=== PATIENT | male | born 1940 | race Two or more races ===

== ENCOUNTER 2019-11-14 06:36 | Day surgery (SDC) | payer MEDICARE, BC ==
[~2019-11-14] VITALS: Ht 160 cm; Wt 70.9 kg
[2019-11-14] VITALS (12 sets, daily range): BP systolic 96–141; BP diastolic 57–77
[2019-11-14] MEDS ORDERED: normal saline 1000ml 1,000 ML IV PRN (07:05)
[2019-11-14] MEDS ORDERED: [UNRECOGNIZED DRUG - CODE] (07:29)
[2019-11-14] MEDS ORDERED: SOTA120T PO (07:29)
[2019-11-14] MEDS ORDERED: LIDO20SO24 PO (07:29)
[2019-11-14] MEDS ORDERED: ASPI-1130 PO (07:29)
[2019-11-14] MEDS ORDERED: FAMO40TA7 PO (07:29)
[2019-11-14] MEDS ORDERED: CLOP75TA35 PO (07:29)
[2019-11-14] MEDS ORDERED: HYDR25TA4 PO (07:29)
[2019-11-14] MEDS ORDERED: LORA-660 PO (07:29)
[2019-11-14] MEDS ORDERED: LOSA50TA64 PO (07:29)
[2019-11-14] MEDS ORDERED: normal saline 1000ml 1,000 ML IV ONE (08:08)
[2019-11-14] MEDS ORDERED: LIDOcaine 1%/PF 5ML 10 MG/ML VIAL ONE (08:18)
[2019-11-14] MEDS ORDERED: midazolam 2 mg/2 ml injection ONE ×2 (08:18→09:02)
[2019-11-14] MEDS ORDERED: heparin 1,000 UNITS/NS 500ml 500 ML ONE (08:18)
[2019-11-14] MEDS ORDERED: fentaNYL/PF 50MCG/1 ML 2ML syringe ONE ×2 (08:18→09:02)
[2019-11-14] MEDS ORDERED: iohexol 300mg/ml 100ml inj. ONE (08:18)
[2019-11-14 08:26] LABS: BASOPHILS # (AUTO) 0.1 X10'3 (0-0.2); BASOPHILS % (AUTO) 1.4 % (0-1); EOSINOPHILS # (AUTO) 0.3 X10'3 (0-0.9); EOSINOPHILS % (AUTO) 5.2 % (0-6); HEMATOCRIT 45.7 % (42.0-52.0); HEMOGLOBIN 15.4 g/dl (14.0-17.9); LYMPHOCYTES # (AUTO) 1.5 X10'3 (1.1-4.8); LYMPHOCYTES % (AUTO) 22.9 % (21-51); MEAN CORPUSCULAR HEMOGLOBIN 30.5 PG (27.0-31.0); MEAN CORPUSCULAR HGB CONC 33.6 g/dL (33.0-36.5); MEAN CORPUSCULAR VOLUME 90.7 FL (78-98); MEAN PLATELET VOLUME 7.8 FL (7.4-10.4); MONOCYTES # (AUTO) 0.6 X10'3 (0-0.9); MONOCYTES % (AUTO) 8.9 % (2-12); NEUTROPHILS % (AUTO) 61.6 % (42-75); PLATELET COUNT 215 X10'3 (140-440); RED BLOOD COUNT 5.04 X10'6 (4.70-6.10); RED CELL DISTRIBUTION WIDTH 14.1 % (11.5-14.5); WHITE BLOOD COUNT 6.4 X10'3 (4.5-11.0)
[2019-11-14 08:28] LABS: ANION GAP 8 (8-16); BLOOD UREA NITROGEN 24 MG/DL (7-18); BUN/CREATININE RATIO 16.3 (5.4-32.0); CALCIUM 9.3 MG/DL (8.5-10.1); CHLORIDE 101 MMOL/L (99-107); CREATININE 1.47 MG/DL (0.60-1.10); GLUCOSE 106 MG/DL (70-104); POTASSIUM 3.7 MMOL/L (3.5-5.1); SODIUM 137 MMOL/L (135-145); TOTAL CARBON DIOXIDE 28.2 MMOL/L (24-32); eGFR 46 ML/MIN
[2019-11-14] MEDS ORDERED: diphenhydrAMINE 50 mg/ml inj ONE (09:13)
[2019-11-14] MEDS ORDERED: normal saline 1000ml 1,000 ML IV SCH (09:52)
== END 2019-11-14 14:00 | disposition home or self-care (01) ==
LOC: SSTAY O 06:36
PROVIDERS: ATTEND Radiology Diagnostic Radiology
DX: I70.202 Unspecified atherosclerosis of native arteries of extremities, left leg (principal); I77.1 Stricture of artery; Z88.6 Allergy status to analgesic agent; Z88.8 Allergy status to other drugs, medicaments and biological substances; Z79.82 Long term (current) use of aspirin; Z79.01 Long term (current) use of anticoagulants
CPT/HCPCS: 36246; 36415; 75710; 75736; 76937; 80048; 85025; 99152; 99153; C1760; C1769; C1894; J1200; J1644; J2250; J3010; J7030; Q9967

== ENCOUNTER 2025-02-28 08:20 | Day surgery (SDC) | payer MEDICARE, BC ==
[~2025-02-28] VITALS: Ht 160 cm; Wt 65.4 kg
[2025-02-28] VITALS (8 sets, daily range): BP systolic 132–148; BP diastolic 73–85; PULSE 58–61; RESP 10–15; O2SAT 95–97
[~2025-02-28 08:20] MED LIST: ASPI-1397 PO; CLOP75TA34 PO; FAMO40TA7 PO; HYDR25TA4 PO; LIDO15SO9 PO; LORA-657 PO; LOSA50TA64 PO; SOTA120T PO; [UNRECOGNIZED DRUG - CODE]
[2025-02-28] MEDS: sodium bicarbonate 1meq/ml syr 150 ML in dextrose 5%-water 1,000 ML IV ONE (08:30)
--- NOTE | 2025-02-28 08:52 | ELECTROCARDIOGRAPH REPORT ---
[facility] Test Date: 2025-02-28 Test Time: 08:51:22 Pat Name: BRANDY CA Department: [facility] Patient ID: [facility]-[id number] Room: Gender: M Gum Dipper: JENNIFER : 1940 Requested By: RONALDO HERNANDEZ Order Number: [id number] Reading MD: Dr. BRAD Marshall Measurements Intervals [place] Rate: 58 P: 2 ND: 180 QRS: -16 QRSD: 104 T: 82 QT: 420 QTc: 413 Interpretive Statements Sinus rhythm Borderline left axis deviation Electronically Signed On 02-28-2025 15:19:[address] BRAD Marshall Please click the below link to view image of tracing.
[2025-02-28] MEDS ORDERED: PANT40TA54 PO (09:03)
[2025-02-28] MEDS ORDERED: NITR0.4T48 (09:05)
[2025-02-28] MEDS ORDERED: TAMS-55 PO (09:05)
[2025-02-28] MEDS ORDERED: LIDOcaine 1% (10mg/ml) 2ml vial ONE (09:06)
[2025-02-28] MEDS ORDERED: fentaNYL/PF 50MCG/1 ML 2ML syringe ONE (09:07)
[2025-02-28] MEDS ORDERED: heparin 1,000unit/ml 10ml vial 10 ML ONE (09:07)
[2025-02-28] MEDS ORDERED: verapamil 2.5 mg/ml inj IV ONE (09:07)
[2025-02-28] MEDS ORDERED: iohexol 350 MG/ML 50ML vial IV ONE (09:07)
[2025-02-28] MEDS ORDERED: midazolam 1 mg/ML 2ml injection ONE (09:07)
[2025-02-28] MEDS ORDERED: nitroGLYCERIN 500mcg/5mL D5W 5 ML IV ONE (09:08)
[2025-02-28 09:49] LABS: MEAN PLATELET VOLUME 8.0 FL (7.4-10.4); RED CELL DISTRIBUTION WIDTH 13.6 % (11.5-14.5)
[2025-02-28 10:04] LABS: INR 1.0 INR
[2025-02-28 10:16] LABS: CREATININE 1.37 MG/DL (0.60-1.10); TOTAL CARBON DIOXIDE 30.1 MMOL/L (24-32); eCRCL 32 ML/MIN; eGFR 49 ML/MIN
--- NOTE | 2025-02-28 11:31 | CARDIOLOGY REPORT ---
DATE OF SERVICE: 02/28/2025 DICTATING PHYSICIAN: RONALDO HERNANDEZ DO CARDIAC CATHETERIZATION REPORT REFERRING PHYSICIAN: Pranav Cisneros MD. CLINICAL HISTORY: This 84-year-old man with a prior history of smoking, hypertension and hyperlipidemia, has been experiencing chest and epigastric pain post sebum in spite of placement on an antacid regimen. Symptoms are thought to be angina. PROCEDURES PERFORMED: * Left heart catheterization. * Left ventriculography. * Selective coronary arteriography. * A 30-minute conscious sedation supervision. DESCRIPTION OF PROCEDURE: Using a standard technique, a 6-[place] sheath was placed in the right radial artery, 200 mcg of nitroglycerin and 2.5 mg of verapamil were directly injected into the radial artery. 5,000 units of heparin were given in a peripheral IV. Left heart catheterization and left ventriculography were performed using a 6-[place] pigtail catheter. Coronary arteriography was performed using 6-[place] #4 left Jonathon catheter for the left coronary artery and a 6-[place] #4 right Jonathon catheter for the right coronary artery. The arterial sheath was removed and Vasc band was applied. RESULTS: HEMODYNAMIC DATA: The left ventricular end diastolic pressure was 15 mmHg. LEFT VENTRICULOGRAM: The left ventriculogram was technically satisfactory. The ejection fraction was at least 65%. CORONARY ARTERIOGRAPHY: There was calcification in the mid LAD and in the distal right coronary. LEFT MAIN CORONARY ARTERY: The left main was a large unobstructed vessel bifurcating into left anterior descending and circumflex coronary arteries. LEFT ANTERIOR DESCENDING CORONARY ARTERY: The LAD was a large vessel that was not completely transapical. There was a small bifurcated proximal first diagonal and a medium to large second diagonal, the latter taking origin from the mid LAD. The origin of the first diagonal appeared to be narrowed by about 40% and there was about a 50-60% narrowing at the origin of a very small caliber subbranch of the same diagonal. The mid LAD, after the takeoff of the first diagonal was narrowed by about 30%. CIRCUMFLEX CORONARY ARTERY: The circumflex was a large main stem vessel. There were 2 medium-sized obtuse marginal branches and no obstructive disease in the circumflex coronary artery. RIGHT CORONARY ARTERY: The right coronary artery was a large vessel that exhibited moderate ectasia. There was a medium-sized posterior descending branch. The first 2 posterolateral branches were very small in size. Terminally, there were 2 small to medium-sized posterolateral branches, the first with about a 60% narrowing at its origin and the most distal with about a 40% narrowing. These vessels were probably no bigger than 2 mm in size. CONCLUSIONS: * No high-grade coronary disease in mainstem coronaries. There was a 50% narrowing at the origin of an essentially tiny subbranch of the first diagonal, a 30% narrowing in the mid LAD, a roughly 30-40% narrowing in the mid mainstem right coronary, and 60% and 40% narrowings of 2 terminal posterolateral branches, not regarded as bigger than 2 mm in size. Neither of these latter 2 vessels were deemed to be optimal for intervention. * Left ventricular systolic function was normal. The estimated LVEF was 65%. RECOMMENDATIONS: Ongoing medical therapy. RONALDO HERNANDEZ DO TID: [id number] RECEIPT: [id number] ARSH PHELAN
[2025-02-28] MEDS ORDERED: ondansetron/PF 4mg/2ml inj IV PRN (11:40)
[2025-02-28] MEDS ORDERED: HYDROcodone/acetaminophen 10/325mg tab PO PRN (11:45)
[2025-02-28] MEDS ORDERED: HYDROcodone/acetaminophen 5mg/325mg tablet PO PRN (11:45)
== END 2025-02-28 14:30 | disposition home or self-care (01) ==
LOC: SSTAY O 08:20
PROVIDERS: ATTEND Internal Medicine Cardiovascular Disease
DX: I25.118 Atherosclerotic heart disease of native coronary artery with other forms of angina pectoris (principal); I10 Essential (primary) hypertension; I48.0 Paroxysmal atrial fibrillation; E78.5 Hyperlipidemia, unspecified; I73.9 Peripheral vascular disease, unspecified; Z87.891 Personal history of nicotine dependence; Z79.899 Other long term (current) drug therapy; Z90.49 Acquired absence of other specified parts of digestive tract; Z98.890 Other specified postprocedural states; Z88.8 Allergy status to other drugs, medicaments and biological substances
CPT/HCPCS: 36415; 80053; 83735; 85025; 85610; 93005; 93458; 99152; 99153; A6258; A6402; C1894; J1644; J2003; J2250; J3010; J3490; J7030; J7070; Q0163; Q9967; Z7610; A6449; C1769